=== PATIENT | female | born 1935 | race Caucasian/White ===

== ENCOUNTER → 2017-10-16 | Outpatient (CLI) | payer MEDICARE ==
[2016-01-30 23:20] VITALS: BP 140/78
[~2017-10-16] MED LIST: LEVO125T5 PO; LISI1TAB3 PO
--- NOTE | 2017-10-17 08:31 | RAD ---
DATE: 10/16/2017 EXAM: MAMMO LISA SCREENING BILATERAL HISTORY: Screening. History of benign right breast biopsy. Multiple moles. COMPARISON: Previous mammogram from 2015 and 2014 This study was interpreted with the benefit of Computerized Aided Detection (CAD). FINDINGS: Breast density category B: There are are scattered areas of fibroglandular density. The nipples are within normal limits. Multiple skin moles noted. No suspicious calcifications, spiculated masses or areas of architectural distortion. IMPRESSION: No mammographic evidence of malignancy. Stable mammogram. BI-RADS CATEGORY: 2 BENIGN FINDING RECOMMENDED FOLLOW-UP: 12M 12 MONTH FOLLOW-UP PQRS compliance statement: Patient information was entered into a reminder system with a target due date 10/16/2018 for the next mammogram. Mammography is a sensitive method for finding small breast cancers, but it does not detect them all and is not a substitute for careful clinical examination. A negative mammogram does not negate a clinically suspicious finding and should not result in delay in biopsying a clinically suspicious abnormality. "Our facility is accredited by the [employer] Mammography [employer]."
== END | disposition home or self-care (01) ==
LOC: MAMMO 15:27
PROVIDERS: ATTEND Family Medicine
DX: Z12.31 Encounter for screening mammogram for malignant neoplasm of breast (principal)
CPT/HCPCS: 77063; G0202; 77067

== ENCOUNTER → 2018-10-19 | Outpatient (CLI) | payer MEDICARE ==
[2016-01-30 23:20] VITALS: BP 140/78
--- NOTE | 2018-10-20 09:45 | RAD ---
DATE: 10/19/2018 EXAM: MAMMO LISA SCREENING BILATERAL HISTORY: Routine screening COMPARISON: 10/16/2017 This study was interpreted with the benefit of Computerized Aided Detection (CAD). Breast Density: SCATTERED The breast parenchyma shows scattered fibroglandular densities. Breast parenchyma level B. FINDINGS: 2-D and 3-D tomosynthesis imaging was performed in CC and MLO projections. Several opacities projected over both breasts are due to skin moles. No new or enlarging breast densities are seen. Minimal benign type calcifications are present. No suspicious microcalcifications have developed. IMPRESSION: Stable mammograms without evidence of malignancy. BI-RADS CATEGORY: 2 BENIGN FINDING(S) RECOMMENDED FOLLOW-UP: 12M 12 MONTH FOLLOW-UP PQRS compliance statement: Patient information was entered into a reminder system with a target due date for the next mammogram. Mammography is a sensitive method for finding small breast cancers, but it does not detect them all and is not a substitute for careful clinical examination. A negative mammogram does not negate a clinically suspicious finding and should not result in delay in biopsying a clinically suspicious abnormality. "Our facility is accredited by the [employer] Mammography [employer]."
== END | disposition home or self-care (01) ==
LOC: MAMMO 15:10
PROVIDERS: ATTEND Family Medicine
DX: Z12.31 Encounter for screening mammogram for malignant neoplasm of breast (principal)
CPT/HCPCS: 77063; 77067

== ENCOUNTER → 2019-10-20 | Outpatient (CLI) | payer MEDICARE ==
[2016-01-30 23:20] VITALS: BP 140/78
[~2019-10-20] MED LIST changes: +LISI1TAB23 PO; -LISI1TAB3 PO
--- NOTE | 2019-10-22 09:50 | RAD ---
DATE: October 20, 2019 EXAM: MAMMO LISA SCREENING BILATERAL HISTORY: Screening study. COMPARISON: 2016 and 2018 This study was interpreted with the benefit of Computerized Aided Detection (CAD). 2-D digital mammographic views of both breasts were performed in the CC and MLO projections. 3-D digital tomosynthesis images of both breasts were performed in the CC and MLO projections and reviewed on a computer workstation. FINDINGS: Breast Density: HETERO The breast parenchyma is heterogenously dense, which could reduce sensitivity of mammography. Breast parenchyma level C.. There are no dominant suspicious masses, suspicious microcalcifications or evidence of architectural distortion. Multiple bilateral skin moles are evident. IMPRESSION: No mammographic indicators for malignancy BI-RADS CATEGORY: 2 BENIGN FINDING RECOMMENDED FOLLOW-UP: 12M 12 MONTH FOLLOW-UP PQRS compliance statement: Patient information was entered into a reminder system with a target due date October 21, 2020 for the next mammogram. Mammography is a sensitive method for finding small breast cancers, but it does not detect them all and is not a substitute for careful clinical examination. A negative mammogram does not negate a clinically suspicious finding and should not result in delay in biopsying a clinically suspicious abnormality. "Our facility is accredited by the [employer] Mammography [employer]." The patient's breast density may affect the ability of mammography to detect breast cancer. There are 4 categories of breast density, A, B, C and D. Breast density A means that most of the breast tissue is replaced with adipose tissue and therefore is not dense. Breast density B means that the breast tissue is mildly dense and scattered. Breast density C means that the breast tissue is heterogeneously dense. Breast density D means that the breast tissue is very dense. Breast densities especially C and D may decrease the sensitivity of mammography to detect breast cancer. Therefore, the patient may benefit from 3-D breast mammography (3D breast tomography) as a part of their screening mammogram. Insurance may or may not pay for this additional imaging. The patient's breast density based on today's mammogram is category C.
== END | disposition home or self-care (01) ==
LOC: MAMMO 10:58
PROVIDERS: ATTEND Family Medicine
DX: Z12.31 Encounter for screening mammogram for malignant neoplasm of breast (principal)
CPT/HCPCS: 77063; 77067

== ENCOUNTER → 2020-10-23 | Outpatient (CLI) | payer MEDICARE ==
[2016-01-30 23:20] VITALS: BP 140/78
--- NOTE | 2020-10-23 17:13 | RAD ---
BILATERAL SCREENING MAMMOGRAM History: Routine screening. Comparison: 10/20/2019, 10/19/2018, 11:30 on 17, 10/15/2016, oh, 10/11/2015. Technique: Routine bilateral digital mammogram views were obtained. Findings: Breast Tissue Density C : The breasts are heterogeneously dense, which may obscure small masses. Small mass at the posterior right upper-outer breast is new compared to the multiple previous exams. It is up to 10 cm from the nipple and measures up to 0.4 cm diameter. It is well-circumscribed and at approximately the lower axillary, 10:00 region. No suspicious calcifications or distortion. Multiple asymmetries are similar to previous exam. Multiple moles are similar to prior exam. IMPRESSION: Small new mass of the right upper outer breast. Spot compression imaging recommended. Placement of multiple markers in this region is recommended at the time of additional mammographic imaging. Ultrasound may be needed. BI-RADS Category 0: Incomplete: Need additional imaging evaluation. The images were reviewed with computer aided detection. Patient information is entered into the reminder system with a target due date for the next screening mammogram. Mammography is the most sensitive method for finding small breast cancers, but it does not detect them all and is not a substitute for careful clinical examination. A negative mammogram does not negate a clinically suspicious finding and should not result in delay in biopsying a clinically suspicious abnormality. "Our facility is accredited by the [employer] Mammography [employer]." Electronically signed by: Byron Ayers MD (10/23/2020 5:10 PM) [id number]
== END ==
LOC: MAMMO 12:50
PROVIDERS: ATTEND Family Medicine
DX: Z12.31 Encounter for screening mammogram for malignant neoplasm of breast (principal); N64.89 Other specified disorders of breast
CPT/HCPCS: 77067

== ENCOUNTER → 2020-11-01 | Outpatient (CLI) | payer MEDICARE ==
[2016-01-30 23:20] VITALS: BP 140/78
--- NOTE | 2020-11-01 12:09 | RAD ---
Examination: MG DIAGNOSTICUNILAT MAMMO History: Reason: ABNORMAL MAMMOGRAM CALLBACK / Spl. Instructions: / History: Comparison/Correlation: None Technique: Right diagnostic mammogram views were obtained. Findings: Breast Tissue Density C : The breasts are heterogeneously dense, which may obscure small masses. No persistent mass or asymmetry identified on spot compression imaging of the far posterior lower rig ht axillary region. IMPRESSION: No mammographic evidence of malignancy. Recommend routine screening. BI-RADS category 1: Negative. The images were reviewed with computer aided detection. Patient information is entered into the reminder system with a target due date for the next screening mammogram. Mammography is the most sensitive method for finding small breast cancers, but it does not detect the m all and is not a substitute for careful clinical examination. A negative mammogram does not negate a clinically suspicious finding and should not result in delay in biopsying a clinically suspicious a bnormality. "Our facility is accredited by the [employer] Mammography Program." Electronically signed by: Byron Ayers MD (11/01/2020 12:07 PM) [email or web address]
== END ==
LOC: MAMMO 11:17
PROVIDERS: ATTEND Family Medicine
DX: R92.2 Inconclusive mammogram (principal)
CPT/HCPCS: 77065

== ENCOUNTER → 2021-01-01 | Outpatient (CLI) | payer MEDICARE ==
[2016-01-30 23:20] VITALS: BP 140/78
[~2021-01-01] MED LIST changes: +ACET500C6 PO; +AMLO2.5T5 PO; +ECHI125T PO; +GINK120T3 PO; +LEVO75CA4 PO; +MULT-766 PO; +Prevagen PO; +UBID100C40 PO; +VIT1TABL8 PO; +[UNRECOGNIZED DRUG - OTHER]
== END ==
LOC: LAB 12:00
PROVIDERS: ATTEND Nurse Anesthetist, Certified Registered
DX: Z01.812 Encounter for preprocedural laboratory examination (principal); H26.9 Unspecified cataract; Z20.822 Contact with and (suspected) exposure to COVID-19
CPT/HCPCS: U0003

== ENCOUNTER → 2021-01-04 | Day surgery (SDC) | payer MEDICARE ==
[~2021-01-04] MED LIST changes: +ACETAMINOPHEN 500 MG TABLET PO PRN; +BALANCED SALT IRRIG SOLN NO.2 500 ML IO ONE; +BENZONATATE 100 MG CAPSULE. PO PRN; +BRIMONIDINE 0.2% OPHTH SOLUTION 5ML BOTTLE. OD ONE; +CEFUROXIME OPHTH 4 MG/0.4 ML SYRINGE. OD ONE; +CHONDROIT-SOD-HYALURONATE KIT. OD ONE; +IBUPROFEN 200 MG TABLET PO PRN; +IPRATRPIUM/ALBUTEROL 0.5/2.5MG 3 ML NEBU. NEB PRN; +IV RINGERS SOLUTION,LACTATED 1,000 ML IV SCH; +LIDO/EPI IN BSS OPHTH 2.7 ML SYRINGE. OD ONE; +LIDOCAINE 2% JELLY 6ML IN APPLICATOR. TP ONE; +MIDAZOLAM HCL PF 2 MG/2 ML VIAL. ONE; +ONDANSETRON PF 4 MG/2 ML VIAL. IV PRN; +PHENYLEPHRINE 10% OPHTH SOLUTION 5ML BOTTLE. OD PRN; +POVIDONE-IODINE 5% OPHTH SOLUTION 30ML BOTTLE. OD ONE; +POVIDONE-IODINE 5% OPHTH SOLUTION 30ML BOTTLE. OD PRN; +PROPARACAINE 0.5% OPHTH SOLUTION 15ML BOTTLE. OD ONE; +PROPARACAINE 0.5% OPHTH SOLUTION 15ML BOTTLE. OD PRN; +prednisoLONE ACETATE 1% OPHTH SUSPENSION 5ML BOTTLE. OD ONE
[2021-01-04] MEDS: TOBRAMYCIN 0.3% OPHTH SOLUTION 5ML BOTTLE. OD SCH ×2 (09:18→09:23)
[2021-01-04] MEDS: PHENYLEPHRINE 2.5% OPHTH SOLUTION 2ML BOTTLE. OD SCH ×3 (09:18→09:29)
[2021-01-04] MEDS: TROPICAMIDE 1% OPHTH SOLUTION 15ML BOTTLE. OD SCH ×3 (09:18→09:28)
[2021-01-04] MEDS: KETOROLAC TROMETHAMINE 0.5% OPHTH SOLUTION BOTTLE. OD SCH ×2 (09:23→09:29)
--- NOTE | 2021-01-04 10:53 | PDOC4 ---
SURGEON: Nellie De Luna MD Date of Procedure: 01/04/21 PREOP Diagnosis Visually significant cataract: Right Eye OD Pre-existing astigmatism: Right Eye OD POSTOP Diagnosis Same PROCEDURE: Phaco w/ posterior chamber IOL: Right Eye OD ANESTHESIA Deep forniceal periocular 2% Lidocaine jelly Leidy/retro bulbar block with 2% Lidocaine with 0.5% Marcaine DESCRIPTION OF PROCEDURE The risks, benefits, and alternatives were discussed with the patient who elected to proceed. Informed consent was obtained in writing and placed in the chart After anesthetizing the eye topically, the patient was taken to the operating room, and the operative eye was prepped and draped in the usual sterile fashion for ocular surgery. A wire lid speculum was placed. A 1-mm clear corneal paracentesis incision was created with the side-port blade at a position three o'clock hours clockwise from the temporal cornea. Then, 1% non-preserved Lidocaine with epinephrine was injected into the anterior chamber followed by viscoelastic. Cotton-tipped applicators were used to stabilize the globe, and a 2.4 mm keratome was used to create a self-sealing incision in clear cornea at the temporal limbus. The Utrata forceps were used to create a continuous curvilinear capsulorrhexis. Balanced saline solution was injected v ia cannula beneath the capsulorrhexis edge to hydrodissect the lens nucleus and cortex from the lens capsule. The phacoemulsification handpiece and a chopping instrument were then used to remove the lens nucleus. The remaining epinuclear material and cortex were removed with the irrigation/aspiration handpiece. Viscoelastic was used to re-inflate the lens capsule, and the intraocular lens was injected directly into the capsular bag. The corneal wound edges were hydrated with balanced salt solution on a cannula and the irrigation/aspiration handpiece was used to extract the remaining viscoelastic. Cefuroxime 0.1mg/ml / Vigamox 0.5% was injected into the anterior chamber intracamerally. The wounds were inspected and found to be watertight at an appropriate intraocular pressure. Topical antibiotic drops were placed on the corneal surface. LRI: No If Yes, Number [] [place] [] Length [] degrees Depth [] microns Incision [place]: 180 Toric Lens [place] [[id number]] Patch/shield with Maxitrol/Tobradex/Erythromycin ointment: 2 Yes No Co-managed patients/postop examination stable for co-management with referring doctor. NELLIE DE LUNA MD Jan 04, 2021 10:53
[2021-01-04 11:02] VITALS: BP 182/86
== END | disposition home or self-care (01) ==
LOC: SURG 08:59
PROVIDERS: ATTEND Ophthalmology
DX: H25.11 Age-related nuclear cataract, right eye (principal); H52.201 Unspecified astigmatism, right eye; I10 Essential (primary) hypertension; I49.9 Cardiac arrhythmia, unspecified; G47.33 Obstructive sleep apnea (adult) (pediatric); E03.9 Hypothyroidism, unspecified; Z90.710 Acquired absence of both cervix and uterus; Z95.0 Presence of cardiac pacemaker; Z88.6 Allergy status to analgesic agent; Z88.8 Allergy status to other drugs, medicaments and biological substances; Z79.899 Other long term (current) drug therapy; Z98.890 Other specified postprocedural states; Z88.7 Allergy status to serum and vaccine; Z91.018 Allergy to other foods
CPT/HCPCS: 66984; V2632; J2250

== ENCOUNTER → 2021-01-15 | Outpatient (CLI) | payer MEDICARE ==
[2021-01-04 11:02] VITALS: BP 182/86
[~2021-01-15] MED LIST changes: -ACETAMINOPHEN 500 MG TABLET PO PRN; -BALANCED SALT IRRIG SOLN NO.2 500 ML IO ONE; -BENZONATATE 100 MG CAPSULE. PO PRN; -BRIMONIDINE 0.2% OPHTH SOLUTION 5ML BOTTLE. OD ONE; -CEFUROXIME OPHTH 4 MG/0.4 ML SYRINGE. OD ONE; -CHONDROIT-SOD-HYALURONATE KIT. OD ONE; -IBUPROFEN 200 MG TABLET PO PRN; -IPRATRPIUM/ALBUTEROL 0.5/2.5MG 3 ML NEBU. NEB PRN; -IV RINGERS SOLUTION,LACTATED 1,000 ML IV SCH; -LIDO/EPI IN BSS OPHTH 2.7 ML SYRINGE. OD ONE; -LIDOCAINE 2% JELLY 6ML IN APPLICATOR. TP ONE; -MIDAZOLAM HCL PF 2 MG/2 ML VIAL. ONE; -ONDANSETRON PF 4 MG/2 ML VIAL. IV PRN; -PHENYLEPHRINE 10% OPHTH SOLUTION 5ML BOTTLE. OD PRN; -POVIDONE-IODINE 5% OPHTH SOLUTION 30ML BOTTLE. OD ONE; -POVIDONE-IODINE 5% OPHTH SOLUTION 30ML BOTTLE. OD PRN; -PROPARACAINE 0.5% OPHTH SOLUTION 15ML BOTTLE. OD ONE; -PROPARACAINE 0.5% OPHTH SOLUTION 15ML BOTTLE. OD PRN; -prednisoLONE ACETATE 1% OPHTH SUSPENSION 5ML BOTTLE. OD ONE
== END ==
LOC: LAB 09:15
PROVIDERS: ATTEND Nurse Anesthetist, Certified Registered
DX: Z01.812 Encounter for preprocedural laboratory examination (principal); H26.9 Unspecified cataract; Z20.822 Contact with and (suspected) exposure to COVID-19
CPT/HCPCS: U0003

== ENCOUNTER → 2021-01-18 | Day surgery (SDC) | payer MEDICARE ==
[~2021-01-18] MED LIST changes: +ACETAMINOPHEN 500 MG TABLET PO PRN; +BALANCED SALT IRRIG SOLN NO.2 500 ML IO ONE; +BENZONATATE 100 MG CAPSULE. PO PRN; +BRIMONIDINE 0.2% OPHTH SOLUTION 5ML BOTTLE. OS ONE; +CEFUROXIME OPHTH 4 MG/0.4 ML SYRINGE. OS ONE; +CHONDROIT-SOD-HYALURONATE KIT. OS ONE; +IPRATRPIUM/ALBUTEROL 0.5/2.5MG 3 ML NEBU. NEB PRN; +IV RINGERS SOLUTION,LACTATED 1,000 ML IV SCH; +LIDO/EPI IN BSS OPHTH 2.7 ML SYRINGE. OS ONE; +LIDOCAINE 2% JELLY 6ML IN APPLICATOR. ONE; +ONDANSETRON PF 4 MG/2 ML VIAL. IV PRN; +PHENYLEPHRINE 10% OPHTH SOLUTION 5ML BOTTLE. OS PRN; +POVIDONE-IODINE 5% OPHTH SOLUTION 30ML BOTTLE. OS ONE; +POVIDONE-IODINE 5% OPHTH SOLUTION 30ML BOTTLE. OS PRN; +PROPARACAINE 0.5% OPHTH SOLUTION 15ML BOTTLE. OS ONE; +PROPARACAINE 0.5% OPHTH SOLUTION 15ML BOTTLE. OS PRN; +prednisoLONE ACETATE 1% OPHTH SUSPENSION 5ML BOTTLE. OS ONE
[2021-01-18] MEDS: TROPICAMIDE 1% OPHTH SOLUTION 15ML BOTTLE. OS SCH ×3 (13:05→13:14)
[2021-01-18] MEDS: TOBRAMYCIN 0.3% OPHTH SOLUTION 5ML BOTTLE. OS SCH ×2 (13:06→13:10)
[2021-01-18] MEDS: PHENYLEPHRINE 2.5% OPHTH SOLUTION 2ML BOTTLE. OS SCH ×3 (13:06→13:14)
[2021-01-18] MEDS: KETOROLAC TROMETHAMINE 0.5% OPHTH SOLUTION BOTTLE. OS SCH ×2 (13:26→13:33)
--- NOTE | 2021-01-18 15:03 | PDOC4 ---
SURGEON: Nellie De Luna MD Date of Procedure: 01/18/21 PREOP Diagnosis Visually significant cataract: Left Eye OS Pre-existing astigmatism: Left Eye OS POSTOP Diagnosis Same PROCEDURE: Phaco w/ posterior chamber IOL: Left Eye OS ANESTHESIA Deep forniceal periocular 2% Lidocaine jelly Leidy/retro bulbar block with 2% Lidocaine with 0.5% Marcaine DESCRIPTION OF PROCEDURE The risks, benefits, and alternatives were discussed with the patient who elected to proceed. Informed consent was obtained in writing and placed in the chart After anesthetizing the eye topically, the patient was taken to the operating room, and the operative eye was prepped and draped in the usual sterile fashion for ocular surgery. A wire lid speculum was placed. A 1-mm clear corneal paracentesis incision was created with the side-port blade at a position three o'clock hours clockwise from the temporal cornea. Then, 1% non-preserved Lidocaine with epinephrine was injected into the anterior chamber followed by viscoelastic. Cotton-tipped applicators were used to stabilize the globe, and a 2.4 mm keratome was used to create a self-sealing incision in clear cornea at the temporal limbus. The Utrata forceps were used to create a continuous curvilinear capsulorrhexis. Balanced saline solution was injected via cannula beneath the capsulorrhexis edge to hydrodissect the lens nucleus and cortex from the lens capsule. The phacoemulsification handpiece and a chopping instrument were then used to remove the lens nucleus. The remaining epinuclear material and cortex were removed with the irrigation/aspiration handpiece. Viscoelastic was used to re-inflate the lens capsule, and the intraocular lens was injected directly into the capsular bag. The corneal wound edges were hydrated with balanced salt solution on a cannula and the irrigation/aspiration handpiece was used to extract the remaining viscoelastic. Cefuroxime 0.1mg/ml / Vigamox 0.5% was injected into the anterior chamber intracamerally. The wounds were inspected and found to be watertight at an appropriate intraocular pressure. Topical antibiotic drops were placed on the corneal surface. LRI: No If Yes, Number [] [place] [] Length [] degrees Depth [] microns Incision [place]: 180 Toric Lens [place] [[id number]] Patch/shield with Maxitrol/Tobradex/Erythromycin ointment: Yes No Co-managed patients/postop examination stable for co-management with referring doctor. NELLIE DE LUNA MD Jan 18, 2021 15:03
[2021-01-18 15:13] VITALS: BP 161/72
== END | disposition home or self-care (01) ==
LOC: SURG 12:47
PROVIDERS: ATTEND Ophthalmology
DX: H25.12 Age-related nuclear cataract, left eye (principal); H52.202 Unspecified astigmatism, left eye; I10 Essential (primary) hypertension; I49.9 Cardiac arrhythmia, unspecified; M19.90 Unspecified osteoarthritis, unspecified site; Z98.890 Other specified postprocedural states; G47.33 Obstructive sleep apnea (adult) (pediatric); Z91.018 Allergy to other foods; Z95.0 Presence of cardiac pacemaker; Z79.899 Other long term (current) drug therapy; Z88.8 Allergy status to other drugs, medicaments and biological substances; Z88.7 Allergy status to serum and vaccine
CPT/HCPCS: 66984; J3010; V2632

== ENCOUNTER → 2021-06-04 | Outpatient (CLI) | payer MEDICARE ==
[2021-01-18 15:13] VITALS: BP 161/72
[~2021-06-04] MED LIST changes: -ACETAMINOPHEN 500 MG TABLET PO PRN; -BALANCED SALT IRRIG SOLN NO.2 500 ML IO ONE; -BENZONATATE 100 MG CAPSULE. PO PRN; -BRIMONIDINE 0.2% OPHTH SOLUTION 5ML BOTTLE. OS ONE; -CEFUROXIME OPHTH 4 MG/0.4 ML SYRINGE. OS ONE; -CHONDROIT-SOD-HYALURONATE KIT. OS ONE; -IPRATRPIUM/ALBUTEROL 0.5/2.5MG 3 ML NEBU. NEB PRN; -IV RINGERS SOLUTION,LACTATED 1,000 ML IV SCH; -LIDO/EPI IN BSS OPHTH 2.7 ML SYRINGE. OS ONE; -LIDOCAINE 2% JELLY 6ML IN APPLICATOR. ONE; -ONDANSETRON PF 4 MG/2 ML VIAL. IV PRN; -PHENYLEPHRINE 10% OPHTH SOLUTION 5ML BOTTLE. OS PRN; -POVIDONE-IODINE 5% OPHTH SOLUTION 30ML BOTTLE. OS ONE; -POVIDONE-IODINE 5% OPHTH SOLUTION 30ML BOTTLE. OS PRN; -PROPARACAINE 0.5% OPHTH SOLUTION 15ML BOTTLE. OS ONE; -PROPARACAINE 0.5% OPHTH SOLUTION 15ML BOTTLE. OS PRN; -prednisoLONE ACETATE 1% OPHTH SUSPENSION 5ML BOTTLE. OS ONE
--- NOTE | 2021-06-04 15:12 | RAD ---
History: Reason: EARLY SATIETY / Spl. Instructions: / History: Procedure: The patient ate a standard meal containing 2 mCi Tc-99m sulfur colloid. Scintigraphic images of the a bdomen were obtained. Counts were obtained. Findings: Retention percentages are as follows: 1 Hr: 31 2 Hr:6 3 Hr:1 Time to half emptying for solids is estimated at 45 minutes. Normal Retention Percentage Range is as Follows: 1 Hr: 35-91% 2 Hr: 2.7-60% 3 Hr: 0.5-28% 4 Hr: 0-10% Impression: No evidence of delayed gastric emptying. Electronically signed by: David Crowley MD (06/04/2021 3:10 PM) [id number]
== END ==
LOC: NM 10:03
PROVIDERS: ATTEND Family Medicine
DX: R68.81 Early satiety (principal)
CPT/HCPCS: 78264; A9541

== ENCOUNTER → 2021-06-21 | Outpatient (CLI) | payer MEDICARE ==
[2021-01-18 15:13] VITALS: BP 161/72
--- NOTE | 2021-06-21 10:10 | RAD ---
EXAM: Abdomen sonogram. HISTORY: Epigastric pain. TECHNIQUE: Sonographic imaging of the abdomen was performed. COMPARISON: None. FINDINGS: The liver is normal in size. There is a 1.1 cm simple appearing hepatic cyst. The gallbladd er is unremarkable. The common bile is normal in caliber for patient age, measuring 8 mm. The kidneys measure 8.7 cm [id number]. There is mild bilateral hydronephrosis. There is a 3.9 cm simple cyst w ithin the lower pole the left kidney. There is no solid renal lesion. The spleen is normal in size. T he pancreas, aorta and inferior vena cava are predominantly obscured due to bowel gas. IMPRESSION: 1. Mild bilateral hydronephrosis. 2. Mild bilateral renal atrophy. 3. 3.9 cm simple appearing left renal cyst and 1.1 cm simple appearing hepatic cyst. Follow-up is not routinely performed for simple cysts. 4. Predominantly obscured midline structures due to bowel gas. Electronically signed by: Darshana Lovell MD (06/21/2021 10:08 AM) [id number]
== END ==
LOC: US 08:41
PROVIDERS: ATTEND Family Medicine
DX: N13.30 Unspecified hydronephrosis (principal); N26.1 Atrophy of kidney (terminal)
CPT/HCPCS: 76700

== ENCOUNTER → 2021-07-11 | Outpatient (CLI) | payer MEDICARE ==
[~2021-07-11] MED LIST changes: +CASIRIVIMAB/IMDEVIMAB 600/600mg in IV NS TV=50 ML IV ONE
[2021-07-11 11:15] VITALS: BP 123/86
--- NOTE | 2021-07-11 11:41 | NUR ---
PT amb to [facility]. PT has been vaccinated and tested positive last week. Is not requiring o2 at this time. PT went over risks of medication considering she does have significant allergies including plastic. Pt reports its only been to water bottle plastic. PT verbalized understanding and agreeable to continuing infusion. 20 g started R AC with ease great blood return noted. Vitals taken prior to infusion and stable. Infusion started per guidelines with filter. Will continue to monitor for s/s of reaction up to an hour after infusion. Rachel COLE
--- NOTE | 2021-07-11 13:00 | NUR ---
No s/s of reactions. Pt tolerated well. PT left ambulatory via private vehicle. Rachel COLE
== END | disposition home or self-care (01) ==
LOC: OPINF 11:02
PROVIDERS: ATTEND Family Medicine
DX: U07.1 COVID-19 (principal)
CPT/HCPCS: M0243; Q0243

== ENCOUNTER → 2021-08-14 | Outpatient (CLI) | payer MEDICARE ==
[2021-07-11 11:15] VITALS: BP 123/86
[~2021-08-14] MED LIST changes: -CASIRIVIMAB/IMDEVIMAB 600/600mg in IV NS TV=50 ML IV ONE; -ECHI125T PO; +ECHI125T2 PO
--- NOTE | 2021-08-14 18:42 | RAD ---
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 The heart is enlarged, unchanged. The lungs are adequately expanded. There are trace pleural effusions. No pulmonary edema, consolidation, or pneumothorax. Lar ge hiatal hernia, increased in size. There is a moderate compression fracture of a midthoracic vertebral body around T8 with 60 percent he ight loss anteriorly and resultant kyphosis. No retropulsion of cortex identified by radiograph. This is unchanged. Probable mild compression deformity at T12. IMPRESSION: 1. Unchanged cardiomegaly. Trace pleural effusions. 2. Increased, large hiatal hernia. 3. Unchanged moderate compression fracture in the midthoracic spine at approximately T8 and mild comp ression deformity of T12. Electronically signed by: Josefina Tompkins MD (08/14/2021 6:40 PM) [id number]
== END ==
LOC: RAD 11:16
PROVIDERS: ATTEND Family Medicine
DX: R05 Cough (principal); I51.7 Cardiomegaly; M48.54XA Collapsed vertebra, not elsewhere classified, thoracic region, initial encounter for fracture; M40.294 Other kyphosis, thoracic region; K44.9 Diaphragmatic hernia without obstruction or gangrene
CPT/HCPCS: 71046

== ENCOUNTER → 2021-11-12 | Outpatient (CLI) | payer MEDICARE ==
[2021-07-11 11:15] VITALS: BP 123/86
[~2021-11-12] MED LIST changes: -LISI1TAB23 PO; +LISI1TAB35 PO
--- NOTE | 2021-11-12 14:41 | RAD ---
DATE: 11/12/2021 EXAM: MG BILAT SCREEN+LISA HISTORY: Screening COMPARISON: 10/19/2018, 10/20/2019, 10/23/2020 This study was interpreted with the benefit of Computerized Aided Detection (CAD). Breast Density: SCATTERED The breast parenchyma shows scattered fibroglandular densities. Breast pare nchyma level B. FINDINGS: No suspicious mass, suspicious calcification, or architectural distortion. Multiple skin le sions are seen bilaterally. IMPRESSION: No evidence of malignancy. BI-RADS CATEGORY: 2 BENIGN FINDING(S) RECOMMENDED FOLLOW-UP: 12M 12 MONTH FOLLOW-UP PQRS compliance statement: Patient information was entered into a reminder system with a target due d ate for the next mammogram. Mammography is a sensitive method for finding small breast cancers, but it does not detect them all a nd is not a substitute for careful clinical examination. A negative mammogram does not negate a clin ically suspicious finding and should not result in delay in biopsying a clinically suspicious abnorma lity. "Our facility is accredited by the [employer] Mammography [employer]." Electronically signed by: Joseifna Tompkins MD (11/12/2021 2:39 PM) [email or web address]
== END ==
LOC: MAMMO 10:23
PROVIDERS: ATTEND Family Medicine
DX: Z12.31 Encounter for screening mammogram for malignant neoplasm of breast (principal); L98.8 Other specified disorders of the skin and subcutaneous tissue
CPT/HCPCS: 77063; 77067

== ENCOUNTER → 2022-01-22 | Outpatient (CLI) | payer MEDICARE ==
[2021-07-11 11:15] VITALS: BP 123/86
--- NOTE | 2022-01-22 13:30 | RAD ---
Bone Densitometry History: Reason: M85.80 /compression fracture. Thyroid medication. Postmenopausal. Findings: Bone Densitometry was performed with dual photon absorption of the lumbar spine and right proximal fe mur. Lumbar Spine: Bone density is 0.627 g/cm2 for L1-L4. T-score is -4.6. Z-score is -2.6. Right total femur: Bone density is 0.693 g/cm2. T-score is -2.1. Z-score is 0.2. IMPRESSION: 1. 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 2. There is advanced osteopenia of the right total femur. World Health Organization definition of osteoporosis and osteopenia for women: normal equal s T score at or above -1.0 standard deviations; osteopenia equals T score between -1.0 and -2.5 stand nayana deviations; osteoporosis equals T score at or below -2.5 standard deviations. Electronically signed by: Darrick Islas MD (01/22/2022 1:27 PM) [id number]
== END ==
LOC: DXRAD 11:32
PROVIDERS: ATTEND Family Medicine
DX: M85.89 Other specified disorders of bone density and structure, multiple sites (principal)
CPT/HCPCS: 77080

== ENCOUNTER → 2022-02-20 | Outpatient (CLI) | payer MEDICARE ==
[2021-07-11 11:15] VITALS: BP 123/86
--- NOTE | 2022-02-21 08:19 | RAD ---
PQRS Compliance Statement: One or more of the following individualized dose reduction techniques were utilized for this examinat ion: 1. Automated exposure control 2. Adjustment of the mA and/or kV according to patient size 3. Use of iterative reconstruction technique CT THORAX WO 02/20/2022 1:40 PM Indication: Chest pain after eating. Hiatal hernia. COMPARISON: CT chest 05/07/2013. TECHNIQUE: Multiple axial CT images of the chest were obtained without intravenous contrast. Coronal and sagittal reformats are provided. FINDINGS: Heterogeneous thyroid gland with a 7 mm nodule identified in the inferior right thyroid lobe. Morphol ogy appears similar to the prior examination. There are no pathologically enlarged axillary, mediastinal or hilar lymph nodes. Heart size is within normal limits. Thoracic aorta is normal in course and caliber. There is no significant pericardial e ffusion. Thoracic esophagus is normal in appearance. Anterior chest wall appears intact. Left chest w all cardiac device is identified with leads terminating in the right atrium and right ventricle. Mild coronary artery vascular calcifications are present. No suspicious solid noncalcified pulmonary nodule. There is a stable groundglass nodule identified wi thin the right upper lobe measuring 5 mm dating back to 05/07/2013 and presumed benign. Scattered calc ified granulomas are present measuring up to 5 mm along the left major fissure. There is bibasilar blair bsegmental atelectasis or scarring predominantly along the left lower lobe. There are no pleural effu sions, pulmonary vascular congestion or pneumothorax. Lungs are clear without focal airspace consolid ation. Central airways are clear. There is a moderate to large sized hiatal hernia without obstruction. Partial intrathoracic stomach c ontaining the cardia and proximal body. There is a cyst in the lateral segment left hepatic lobe gamaliel uring 1.5 cm. There is a subcentimeter hypodensity in the posterior right hepatic lobe measuring 0.7 cm which is too small to characterize, however statistically favored represent benign etiology in the absence of underlying malignancy. There is a cyst in the lateral inferior pole right kidney measurin g 0.8 cm. No suspicious osseous abnormality. No paraspinal soft tissue mass. IMPRESSION: 1. Moderate to large sized hiatal hernia without malrotation. 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 Bibasilar subsegmental atelectasis or scarring, left greater than right. No new or enlarging solid noncalcified pulmonary nodules. Electronically signed by: Flor Xiao MD (02/21/2022 8:16 AM) [id number]
== END ==
LOC: CT 13:25
PROVIDERS: ATTEND Family Medicine
DX: K44.9 Diaphragmatic hernia without obstruction or gangrene (principal); R91.1 Solitary pulmonary nodule; J84.10 Pulmonary fibrosis, unspecified; E04.1 Nontoxic single thyroid nodule; I25.10 Atherosclerotic heart disease of native coronary artery without angina pectoris
CPT/HCPCS: 71250